=== PATIENT | female | born 1985 | race African-American/Black ===

== ENCOUNTER 2018-08-31 17:15 | Emergency (ER) | payer SELFPAY ==
--- NOTE | 2018-08-31 19:24 | RAD REPORT ---
EXAM DESCRIPTION: US - Extremity Nonvascular Complete - 08/31/2018 7:17 pm CLINICAL HISTORY: PAIN Palpable lesion COMPARISON: No comparisons TECHNIQUE: Real-time sonographic evaluation of the area of interest was performed. FINDINGS: Subcutaneous, complex hypoechoic fluid collection is present right lateral chest measuring 2.0 x 2.9 x 1.5 cm, likely representing a subcutaneous abscess collection.
[2018-08-31] MEDS ORDERED: CLINDAMYCIN HCL 150 MG CAP ONE (19:32)
[2018-08-31] MEDS ORDERED: LIDOCAINE 1% MPF 5 ML VIAL ONE (19:32)
[2018-08-31] MEDS ORDERED: KETOROLAC 30 MG/ML INJ ONE (19:32)
--- NOTE | 2018-08-31 20:08 | ER ---
Nurse's Notes [facility] Name: Jackie Martins Age: 32 yrs Sex: Female : 1985 Arrival Date: 08/31/2018 Time: 17:19 Bed 24 Private MD: Diagnosis: Cutaneous abscess of right axilla Presentation: 08/31 17:26 Presenting complaint: Patient states: "I have a knot on the side of my left breast and aj1 its hurting" Reports redness and swelling to left breast. Denies fever. Transition of care: patient was not received from another setting of care. Onset of symptoms was August 30, 2018. Risk Assessment: Do you want to hurt yourself or someone else? Patient reports no desire to harm self or others. Initial Sepsis Screen: Does the patient meet any 2 criteria? No. Patient's initial sepsis screen is negative. Does the patient have a suspected source of infection? Yes: Skin breakdown/wound. Care prior to arrival: None. 17:26 Method Of Arrival: Ambulatory [facility] 17:26 Acuity: SUDHIR 4 aj1 Triage Assessment: 17:27 General: Appears in no apparent distress. uncomfortable, Behavior is calm, cooperative, aj1 appropriate for age. Pain: Complains of pain in right breast Pain currently is 8 out of 10 on a pain scale. Neuro: Level of Consciousness is awake, alert, obeys commands. Cardiovascular: Patient's skin is warm and dry. Respiratory: Airway is patent Respiratory effort is even, unlabored, Respiratory pattern is regular, symmetrical. 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 - Social history:: Smoking status: Patient uses tobacco products, smokes one-half pack cigarettes per day. - Ebola Screening: : Patient denies travel to an Ebola-affected area in the 21 days before illness onset. Screenin:37 Abuse screen: Denies threats or abuse. Denies injuries from another. Nutritional rv screening: No deficits noted. Tuberculosis screening: No symptoms or risk factors identified. Fall Risk None identified. Assessment: 19:00 General: Appears in no apparent distress. comfortable, Behavior is calm, cooperative. rv 19:00 Pain: Complains of pain in right breast. Neuro: Level of Consciousness is awake, alert, rv obeys commands, Oriented to person, place, time, situation. Cardiovascular: Capillary refill < 3 seconds. Respiratory: Airway is patent. GI: No signs and/or symptoms were reported involving the gastrointestinal system. : No signs and/or symptoms were reported regarding the genitourinary system. EENT: No signs and/or symptoms were reported regarding the EENT system. Derm: Skin is intact. Musculoskeletal: No signs and/or symptoms reported regarding the musculoskeletal system. Vital Signs: 17:27 BP 129 / 85; Pulse 95; Resp 20; Temp 97.6; Pulse Ox 100% on R/A; Weight 99.79 kg (R); aj1 Height 5 ft. 7 in. (170.18 cm) (R); Pain 8/10; 17:27 Body Mass Index 34.46 (99.79 kg, 170.18 cm) aj1 ED Course: 17:19 Patient arrived in ED. rg4 17:27 Triage completed. aj1 17:27 Arm band placed on Patient placed in waiting room, Patient notified of wait time. aj1 17:50 Linda Pardo FNP-C is [facility]. snw 17:50 Aníbal Riley MD is Attending Physician. snw 19:03 Patient taken to ultrasound. via wheelchair. aa4 19:17 Ultrasound completed. Patient tolerated well. Patient moved back from ultrasound. aa4 19:17 Extremity Nonvascular Complete In Process Unspecified. EDMS 20:38 No provider procedures requiring assistance completed. Patient did not have IV access rv during this emergency room visit. 20:39 Patient has correct armband on for positive identification. Bed in low position. Call rv light in reach. Side rails up X 1. Adult w/ patient. Pulse ox on. NIBP on. Administered Medications: 19:30 Drug: TORadol 60 mg Route: IM; Site: right deltoid; rv 20:34 Follow up: Response: Pain is decreased rv 19:30 Drug: Clindamycin 300 mg Route: PO; rv 20:35 Follow up: Response: No adverse reaction rv 20:34 Drug: [place] (7.5 mg-325 mg) 1 tabs Route: PO; rv 20:36 Follow up: Response: Medication administered at discharge. rv Outcome: 20:07 Discharge ordered by . w 20:38 Discharged to home ambulatory. rv 20:38 Condition: good 20:38 Discharge instructions given to patient, Instructed on discharge instructions, follow up and referral plans. medication usage, wound care, Demonstrated understanding of instructions, follow-up care, medications, wound care, Prescriptions given X 2. 20:38 No charge visit due to 20:39 Patient left the ED. rv Signatures: Dispatcher [employer] EDEboni Cage, RN RN aj1 Linda Pardo, SLOT KEY PERSON-C SLOT KEY PERSON-Csnw Shelby Pelayo4 Mariai Flores rg4 Alex Alcantara RN RN rv
--- NOTE | 2018-08-31 20:08 | EDPHYS ---
Physician Documentation [facility] Name: Jackie Martins Age: 32 yrs Sex: Female : 1985 Arrival Date: 08/31/2018 Time: 17:19 Bed 24 Private MD: ED Physician Aníbal Riley HPI: 08/31 19:39 This 32 yrs old Black Female presents to ER via Ambulatory with complaints of Breast snw Lump. 19:39 The patient presents with an abscess of the right lateral anterior chest. Description: snw The affected area is moderate sized, localized, raised, swollen, tense. Onset: The symptoms/episode began/occurred suddenly, 3 day(s) ago, and became worse and became persistent. Possible cause(s): unknown. Associated signs and symptoms: Pertinent positives: swelling. Severity of symptoms: At their worst the symptoms were moderate. The patient has experienced a previous episode. The patient has not recently seen a physician. 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 - Social history:: Smoking status: Patient uses tobacco products, smokes one-half pack cigarettes per day. - Ebola Screening: : Patient denies travel to an Ebola-affected area in the 21 days before illness onset. ROS: 19:36 Constitutional: Negative for fever, chills, and weight loss, Eyes: Negative for injury, snw pain, redness, and discharge, ENT: Negative for injury, pain, and discharge, Neck: Negative for injury, pain, and swelling, Cardiovascular: Negative for chest pain, palpitations, and edema, Respiratory: Negative for shortness of breath, cough, wheezing, and pleuritic chest pain, Abdomen/GI: Negative for abdominal pain, nausea, vomiting, diarrhea, and constipation, Back: Negative for injury and pain, : Negative for injury, bleeding, discharge, and swelling, MS/Extremity: Negative for injury and deformity, Neuro: Negative for headache, weakness, numbness, tingling, and seizure, Psych: Negative for depression, anxiety, suicide ideation, homicidal ideation, and hallucinations. 19:36 Skin: Positive for abscess, of the low right mid axillary line . Exam: 19:36 Constitutional: This is a well developed, well nourished patient who is awake, alert, snw and in no acute distress. Head/Face: Normocephalic, atraumatic. Eyes: Pupils equal round and reactive to light, extra-ocular motions intact. Lids and lashes normal. Conjunctiva and sclera are non-icteric and not injected. Cornea within normal limits. Periorbital areas with no swelling, redness, or edema. ENT: Nares patent. No nasal discharge, no septal abnormalities noted. Tympanic membranes are normal and external auditory canals are clear. Oropharynx with no redness, swelling, or masses, exudates, or evidence of obstruction, uvula midline. Mucous membranes moist. Neck: Trachea midline, no thyromegaly or masses palpated, and no cervical lymphadenopathy. Supple, full range of motion without nuchal rigidity, or vertebral point tenderness. No Meningismus. Chest/axilla: Normal chest wall appearance and motion. Nontender with no deformity. right lower mid-axillary line with tense, tender, abscess, minimal erythema Cardiovascular: Regular rate and rhythm with a normal S1 and S2. No gallops, murmurs, or rubs. Normal PMI, no JVD. No pulse deficits. Respiratory: Lungs have equal breath sounds bilaterally, clear to auscultation and percussion. No rales, rhonchi or wheezes noted. No increased work of breathing, no retractions or nasal flaring. Abdomen/GI: Soft, non-tender, with normal bowel sounds. No distension or tympany. No guarding or rebound. No evidence of tenderness throughout. Back: No spinal tenderness. No costovertebral tenderness. Full range of motion. Skin: Warm, dry with normal turgor. Normal color with no rashes, no lesions, and no evidence of cellulitis. MS/ Extremity: Pulses equal, no cyanosis. Neurovascular intact. Full, normal range of motion. Neuro: Awake and alert, GCS 15, oriented to person, place, time, and situation. Cranial nerves II-XII grossly intact. Motor strength 5/5 in all extremities. Sensory grossly intact. Cerebellar exam normal. Normal gait. Psych: Awake, alert, with orientation to person, place and time. Behavior, mood, and affect are within normal limits. Vital Signs: 17:27 BP 129 / 85; Pulse 95; Resp 20; Temp 97.6; Pulse Ox 100% on R/A; Weight 99.79 kg (R); aj1 Height 5 ft. 7 in. (170.18 cm) (R); Pain 8/10; 17:27 Body Mass Index 34.46 (99.79 kg, 170.18 cm) aj Procedures: 20:06 I \T\ D: Incision and drainage was performed for an abscess of the right axilla. Prepped snw with Betadine, Anesthetized with 8 ml's 1% Lidocaine. Incised with #10 blade. Drained large amount purulent fluid. Loculations removed. Abscess cavity explored. Packed with iodoform gauze, Dressing: sterile 4x4 gauze, the patient tolerated the procedure well. MDM: 18:17 Patient medically screened. lexus 20:08 Data reviewed: vital signs, nurses notes. Data interpreted: Pulse oximetry: on room air snw is 100 %. Interpretation: normal. Counseling: I had a detailed discussion with the patient and/or guardian regarding: the historical points, exam findings, and any diagnostic results supporting the discharge/admit diagnosis, the presence of at least one elevated blood pressure reading (>120/80) during this emergency department visit, the need for outpatient follow up, to return to the emergency department if symptoms worsen or persist or if there are any questions or concerns that arise at home. Special discussion: I have referred the patient to see his PCP for further evaluation of high blood pressure. Based on the history and exam findings, there is no indication for further emergent testing or inpatient evaluation. I discussed with the patient/guardian the need to see the general surgeon for further evaluation of the symptoms. I discussed with the patient/guardian the need to see the primary care provider for further evaluation of the symptoms. 08/31 19:03 Order name: Extremity Nonvascular Complete; Complete Time: 19:31 EDMS 08/31 19:09 Order name: I\T\D Setup; Complete Time: 19:21 snw 08/31 19:09 Order name: Suture Tray at Bedside; Complete Time: 19:21 snw Administered Medications: 19:30 Drug: TORadol 60 mg Route: IM; Site: right deltoid; rv 20:34 Follow up: Response: Pain is decreased rv 19:30 Drug: Clindamycin 300 mg Route: PO; rv 20:35 Follow up: Response: No adverse reaction rv 20:34 Drug: [place] (7.5 mg-325 mg) 1 tabs Route: PO; rv 20:36 Follow up: Response: Medication administered at discharge. rv Disposition: 09/01 08:28 Co-signature as Attending Physician, Aníbal Riley MD I agree with the assessment and lexus plan of care. Disposition: 08/31/18 20:07 Discharged to Home. Impression: Cutaneous abscess of right axilla. - Condition is Stable. - Discharge Instructions: Skin Abscess, Incision and Drainage, Incision and Drainage, Care After. - Prescriptions for Clindamycin HCl 300 mg Oral Capsule - take 1 capsule by ORAL route every 6 hours for 10 days; 40 capsule. Diclofenac Sodium 75 mg Oral Tablet Sustained Release - take 1 tablet by ORAL route 2 times per day; 30 tablet. - Medication Reconciliation Form, Thank You Letter, Antibiotic Education, Prescription Opioid Use, Work release form form. - Follow up: Private Physician; When: 1 - 2 days; Reason: Recheck today's complaints, Continuance of care, Re-evaluation by your physician. Follow up: Emergency Department; When: As needed; Reason: Worsening of condition. Signatures: Dispatcher [employer] EDEboni Cage, RN RN Aníbal Weiss MD MD cha Therrien, Shelly, SAVINGS COUNSELOR-C SAVINGS COUNSELOR-Csnw Alex Alcantara RN RN rv Corrections: (The following items were deleted from the chart) 08/31 19:03 18:36 Extrmty Nonvasular Limited+US.RAD.BRZ ordered. EDMS EDMS 19:03 18:43 Extrmty Nonvasular Limited+US.RAD.BRZ ordered. EDMS EDMS 20:39 20:07 08/31/2018 20:07 Discharged to Home. Impression: Cutaneous abscess of right rv axilla. Condition is Stable. Forms are Medication Reconciliation Form, Thank You Letter, Antibiotic Education, Prescription Opioid Use. Follow up: Private Physician; When: 1 - 2 days; Reason: Recheck today's complaints, Continuance of care, Re-evaluation by your physician. Follow up: Emergency Department; When: As needed; Reason: Worsening of condition. snw
[2018-08-31] MEDS ORDERED: HYDROCODONE/APAP 7.5/325 MG TAB ONE (20:28)
== END 2018-08-31 20:39 | disposition home or self-care (01) ==
LOC: ER 17:15
PROC: 0J9D0ZZ Drainage of Right Upper Arm Subcutaneous Tissue and Fascia, Open Approach (ICD-10-PCS; principal; 2018-08-31)
DX: L02.411 Cutaneous abscess of right axilla (principal); F17.210 Nicotine dependence, cigarettes, uncomplicated
CPT/HCPCS: 76881; 96372